=== PATIENT | female | born 1945 | race Caucasian/White ===

== ENCOUNTER 2017-10-12 10:07 | Emergency (ER) | payer MEDICARE, MEDICAID ==
[~2017-10-12] VITALS: Ht 160 cm; Wt 77.1 kg
[2017-10-12] MEDS ORDERED: BACITRACIN TOP OINT 1 UD PKG TOP ONE (12:15)
[2017-10-12] MEDS ORDERED: LIDOCAINE 1% HCL (LOCAL ANESTH.) INJ 20ML MDV ID ONE (12:15)
[2017-10-12 12:35] VITALS: BP 146/62
== END 2017-10-12 14:26 | disposition home or self-care (01) ==
LOC: ER 10:07
DX: S01.81XA Laceration without foreign body of other part of head, initial encounter (principal); W22.01XA Walked into wall, initial encounter; Y93.89 Activity, other specified; Y92.89 Other specified places as the place of occurrence of the external cause; Y99.8 Other external cause status
CPT/HCPCS: 12053; 70450; 99284; J2001

== ENCOUNTER 2017-10-14 08:46 | Emergency (ER) | payer MEDICARE, MEDICAID ==
[~2017-10-14] VITALS: Ht 160 cm; Wt 72.6 kg
[2017-10-14 09:17] VITALS: BP 123/54
== END 2017-10-14 10:06 | disposition home or self-care (01) ==
LOC: ER 08:46
DX: S01.81XD Laceration without foreign body of other part of head, subsequent encounter (principal); X58.XXXD Exposure to other specified factors, subsequent encounter

== ENCOUNTER 2017-10-22 08:22 | Emergency (ER) | payer MEDICARE, MEDICAID ==
[~2017-10-22] VITALS: Ht 154.9 cm; Wt 63.5 kg
[2017-10-22 09:00] VITALS: BP 148/57
== END 2017-10-22 09:13 | disposition home or self-care (01) ==
LOC: ER 08:22
DX: S01.81XD Laceration without foreign body of other part of head, subsequent encounter (principal); X58.XXXD Exposure to other specified factors, subsequent encounter

== ENCOUNTER 2020-10-15 20:00 | Inpatient (IN) | payer MEDICAID, MEDICARE ==
[~2020-10-15] VITALS: Ht 152.4 cm; Wt 51.4 kg
[2020-10-15] MEDS ORDERED: SODIUM CHLORIDE 0.9% 500 ML IV ONE (21:30)
[2020-10-15 22:11] LABS: Hemoglobin 8.4 g/dL (12.2-16.2); Mean Corpuscular Hgb Conc. 33.1 g/dL (32.0-36.0); Mean Corpuscular Volume 99.7 fL (80.0-100.0)
[2020-10-15 22:13] LABS: Hematocrit 25.4 % (36.0-46.0); Platelet Count (auto) 140 10^3/uL (140-450); Red Blood Cells 2.54 10^6/uL (4.0-5.20); Red Cell Distribution Width 18.5 % (11.8-14.3); White Blood Cell 6.8 10^3/uL (4.4-10.8)
[2020-10-15 22:16] LABS: Basophils % (manual) 0 (0.0-2.0); Blast Cells 0; Eosinophils % (manual) 0 (0-7); Metamyelocytes % 0; Myelocytes % 0; Promyelocytes % 0; Reactive Lymphocytes 0
[2020-10-15 22:32] LABS: Calcium 9.4 mg/dL (8.5-10.1); Chloride 115 mmol/L (98-107); INR 1.04 (0.9-1.15); Partial Thromboplastin Time 34.3 sec (23.0-31.2); Potassium 3.7 mmol/L (3.5-5.1); Sodium 143 mmol/L (136-145)
[2020-10-15 22:34] LABS: Band Neutrophils % (manual) 19; Lymphocytes % (manual) 14 (10.0-50.0); Monocytes % (manual) 7 (0-12)
[2020-10-15 22:40] LABS: Alanine Aminotransferase 27 U/L (13-56); Albumin 2.2 g/dL (3.4-5.0); Alkaline Phosphatase 133 U/L (45-117); Anion Gap 4 (5-15); Aspartate Aminotransferase 41 U/L (15-37); BUN/Creatinine Ratio 32.5; Bilirubin, Total 0.4 mg/dL (0.2-1.0); Blood Urea Nitrogen 26 mg/dL (7-18); Carbon Dioxide 24 mmol/L (21-32); GFR African American 90 mL/min; GFR Non-African American 74 mL/min; Glucose 99 mg/dL (74-106); Total Protein 6.3 g/dL (6.4-8.2)
[2020-10-16] MEDS ORDERED: PIPERACILLIN-TAZOB 3.375GM 100 ML IV ONE (00:30)
[2020-10-16] MEDS ORDERED: MORPHINE SULF INJ 2 MG/ML SYRINGE 1ML IV PRN (00:45)
[2020-10-16] MEDS ORDERED: ONDANSETRON HCL 4 MG/2 ML VIAL IV PRN (00:45)
[2020-10-16] MEDS ORDERED: ACETAMINOPHEN 325 MG TAB PO PRN (00:45)
[2020-10-16] MEDS ORDERED: NITROGLYCERIN 0.4 MG SL TAB SL PRN (00:45)
[2020-10-16] MEDS ORDERED: DOCUSATE SOD 100 MG CAP PO PRN (00:45)
[2020-10-16 01:19] LABS: Urine Bacteria MOD /hpf (None Seen); Urine Blood Negative /uL (Negative); Urine Budding Yeast MODERATE /hpf (None Seen); Urine Hyaline Cast FEW /lpf (0 - 2); Urine Mucus FEW (None Seen); Urine WBC 87 /hpf (0 - 5); Urine WBC Clumps PRESENT /hpf (None Seen)
[2020-10-16] MEDS: cefTRIAXone 1GM/50ML D5W 50 ML IV SCH ×2 (09:00→10:54)
[2020-10-16] MEDS: FAMOTIDINE 20 MG TAB PO SCH ×2 (10:31→22:00)
[2020-10-16] MEDS ORDERED: SODIUM CHLORIDE 0.9% 500 ML IV ONE (10:45)
[2020-10-16] MEDS: NOREPINEPHRINE 8 MG/250ML KIT 250 ML IV SCH (11:46)
[2020-10-16] MEDS ORDERED: VANCOMYCIN PER PHARMACY 0 MG IV SCH (14:00)
[2020-10-16] MEDS ORDERED: FUROSEMIDE 40 MG/4 ML VIAL IV ONE (14:00)
[2020-10-16] MEDS ORDERED: SODIUM CHLORIDE 0.9% 3,000 ML IV ONE (14:00)
[2020-10-16] MEDS ORDERED: VANCOMYCIN 750mg/250ml 250 ML IV ONE (14:30)
[2020-10-16] MEDS ORDERED: PPN PER PHARMACY 0 ML IV SCH (15:00)
[2020-10-16 19:41] LABS: Calcium 8.9 mg/dL (8.5-10.1); Potassium 3.8 mmol/L (3.5-5.1)
[2020-10-16 19:47] LABS: BUN/Creatinine Ratio 30.9; Bilirubin, Total 0.3 mg/dL (0.2-1.0); Phosphorus 3.6 mg/dL (2.5-4.90); Pre Albumin 5.8 mg/dL (20.0-40.0); Total Protein 5.8 g/dL (6.4-8.2)
[2020-10-16] MEDS ORDERED: AMINO ACID INFUSION IN D5W 2,000 ML IV NR (20:00)
[2020-10-16] MEDS: LORazepam 2MG/ML-1ML VIAL IV PRN (20:15)
[2020-10-17] MEDS ORDERED: DEXTROSE (50%) 50ML SYRG IV SCH
[2020-10-17 06:00] LABS: Basophils # (auto) 0 10 ^3/uL (0-0.2); Basophils % (auto) 0.1 % (0.0-2.0); Eosinophils # (auto) 0 10 ^3/uL (0-0.8); Eosinophils % (auto) 0.1 % (0.0-7.0); Lymphocytes # (auto) 0.6 10 ^3/uL (0.4-5.4); Monocytes # (auto) 0.6 10 ^3/uL (0-1.3); Neutrophils # (auto) 7.9 10 ^3/uL (1.6-8.6); Neutrophils % (auto) 86.4 % (37.0-80.0); Red Cell Distribution Width 17.9 % (11.8-14.3)
[2020-10-17] MEDS: InsuLIN REG 1unit/0.01ml Soln (100units/ml) SC SCH ×4 (06:00→18:00)
[2020-10-17] MEDS: ACCU-CHEK COMFORT CURVE STRIP VI SCH ×4 (06:00→18:03)
[2020-10-17 06:03] LABS: Hematocrit 22.9 % (36.0-46.0); Hemoglobin 7.5 g/dL (12.2-16.2); Lymphocytes % (auto) 6.7 % (10.0-50.0); Mean Corpuscular Hemoglobin 32.7 pg (28.0-32.0); Mean Corpuscular Hgb Conc. 32.9 g/dL (32.0-36.0); Mean Corpuscular Volume 99.2 fL (80.0-100.0); Monocytes % (auto) 6.7 % (0.0-12.0); Nucleated Red Blood Cells % 0.6 %; Platelet Count (auto) 165 10^3/uL (140-450); Red Blood Cells 2.31 10^6/uL (4.0-5.20); White Blood Cell 9.1 10^3/uL (4.4-10.8)
[2020-10-17 06:26] LABS: Albumin 2.2 g/dL (3.4-5.0); Calcium 8.2 mg/dL (8.5-10.1); Magnesium 1.6 mg/dL (1.6-2.6); Potassium 3.7 mmol/L (3.5-5.1)
[2020-10-17 06:29] LABS: Cholesterol 109 mg/dL (< 200); HDL Cholesterol 53 mg/dL (40-59); LDL Cholesterol 47 mg/dL (< 100); Triglycerides 63 mg/dL (< 150)
[2020-10-17 06:33] LABS: BUN/Creatinine Ratio 20.9; Bilirubin, Total 0.4 mg/dL (0.2-1.0); Phosphorus 2.8 mg/dL (2.5-4.90); Total Protein 6.4 g/dL (6.4-8.2)
[2020-10-17] MEDS: FUROSEMIDE 40 MG/4 ML VIAL IV SCH (11:14)
[2020-10-17] MEDS: LORazepam 2MG/ML-1ML VIAL IV PRN (11:14)
[2020-10-17] MEDS: NOREPINEPHRINE 8 MG/250ML KIT 250 ML IV SCH (11:45)
[2020-10-17] MEDS: VANCOMYCIN 750mg/250ml 250 ML IV SCH ×2 (13:20→14:30)
[2020-10-17] MEDS: MAGNESIUM SULFATE 1GM/100ML 100 ML IV SCH ×2 (13:37→14:40)
[2020-10-17 17:00] LABS: % Iron Saturation 10.3 % (15-50)
[2020-10-17 17:18] LABS: Folate (Folic Acid) 5.31 ng/mL (5.38-24)
[2020-10-17] MEDS ORDERED: PPN PER PHARMACY IV NR ×9 (20:00)
[2020-10-17 22:00] VITALS: BP 140/71
[2020-10-18] MEDS: ACCU-CHEK COMFORT CURVE STRIP VI SCH ×4 (00:25→17:19)
[2020-10-18] MEDS ORDERED: QUET100T46 PO (01:22)
[2020-10-18] MEDS ORDERED: LORA1TAB23 PO (01:22)
[2020-10-18 05:00] VITALS: BP 150/90
[2020-10-18] MEDS: LEVOTHYROXINE SODIUM 25 MCG TAB PO SCH (06:40)
[2020-10-18] MEDS: InsuLIN REG 1unit/0.01ml Soln (100units/ml) SC SCH ×4 (06:42→17:18)
[2020-10-18 09:00] VITALS: BP 139/66
[2020-10-18] MEDS: FUROSEMIDE 40 MG/4 ML VIAL IV SCH (09:45)
[2020-10-18] MEDS: cefTRIAXone 1GM/50ML D5W 50 ML IV SCH (09:51)
[2020-10-18] MEDS: FOLIC ACID 1 MG in D5W 5% 50 ML INJ SCH (10:00)
[2020-10-18] MEDS ORDERED: FOLIC ACID 1 MG in D5W 5% 50 ML INJ SCH (10:00)
[2020-10-18] MEDS ORDERED: FAMOTIDINE (10MG/ML) 2ML VL IV SCH (10:00)
[2020-10-18 10:03] LABS: Albumin 2.1 g/dL (3.4-5.0); Calcium 8.7 mg/dL (8.5-10.1); Magnesium 2.4 mg/dL (1.6-2.6); Potassium 3.2 mmol/L (3.5-5.1)
[2020-10-18 10:06] LABS: BUN/Creatinine Ratio 30.3; Bilirubin, Total 0.4 mg/dL (0.2-1.0); Phosphorus 2.8 mg/dL (2.5-4.90); Total Protein 6.5 g/dL (6.4-8.2)
[2020-10-18 10:17] LABS: Basophils # (auto) 0 10 ^3/uL (0-0.2); Basophils % (auto) 0.2 % (0.0-2.0); Eosinophils # (auto) 0 10 ^3/uL (0-0.8); Eosinophils % (auto) 0.6 % (0.0-7.0); Hematocrit 23.9 % (36.0-46.0); Hemoglobin 7.7 g/dL (12.2-16.2); Lymphocytes # (auto) 0.9 10 ^3/uL (0.4-5.4); Lymphocytes % (auto) 12.3 % (10.0-50.0); Mean Corpuscular Hemoglobin 32.4 pg (28.0-32.0); Mean Corpuscular Hgb Conc. 32.4 g/dL (32.0-36.0); Mean Corpuscular Volume 100.1 fL (80.0-100.0); Monocytes # (auto) 0.7 10 ^3/uL (0-1.3); Monocytes % (auto) 10.1 % (0.0-12.0); Neutrophils # (auto) 5.4 10 ^3/uL (1.6-8.6); Neutrophils % (auto) 76.8 % (37.0-80.0); Nucleated Red Blood Cells % 0.7 %; Platelet Count (auto) 142 10^3/uL (140-450); Red Blood Cells 2.38 10^6/uL (4.0-5.20); Red Cell Distribution Width 17.8 % (11.8-14.3); White Blood Cell 7.1 10^3/uL (4.4-10.8)
[2020-10-18] MEDS: IRON SUCROSE COMPLEX 200 MG in SODIUM CHL 0.9% 100 ML IV SCH (11:46)
[2020-10-18] MEDS ORDERED: SODIUM FERR GLUC 62.5MG/5ML 125 MG in SODIUM CHL 0.9% 100 ML IV SCH (12:00)
[2020-10-18] MEDS: POTASSIUM CHL 20MEQ/100ML 100 ML IV SCH ×4 (12:45→23:24)
[2020-10-18 13:00] VITALS: BP 144/69
[2020-10-18 17:00] VITALS: BP 121/61
[2020-10-18] MEDS ORDERED: PPN PER PHARMACY IV NR ×8 (20:00)
[2020-10-18 22:00] VITALS: BP 126/98
[2020-10-19] MEDS: ACCU-CHEK COMFORT CURVE STRIP VI SCH ×5 (00:09→23:47)
[2020-10-19 05:00] VITALS: BP 146/87
[2020-10-19] MEDS: InsuLIN REG 1unit/0.01ml Soln (100units/ml) SC SCH ×5 (06:00→23:47)
[2020-10-19] MEDS: LEVOTHYROXINE SODIUM 25 MCG TAB PO SCH (06:23)
[2020-10-19 08:05] LABS: Basophils # (auto) 0 10 ^3/uL (0-0.2); Basophils % (auto) 0.3 % (0.0-2.0); Eosinophils # (auto) 0.1 10 ^3/uL (0-0.8); Hematocrit 26.5 % (36.0-46.0); Hemoglobin 8.6 g/dL (12.2-16.2); Lymphocytes # (auto) 1.3 10 ^3/uL (0.4-5.4); Lymphocytes % (auto) 14.3 % (10.0-50.0); Mean Corpuscular Hemoglobin 32.4 pg (28.0-32.0); Mean Corpuscular Hgb Conc. 32.4 g/dL (32.0-36.0); Mean Corpuscular Volume 99.7 fL (80.0-100.0); Monocytes # (auto) 1.2 10 ^3/uL (0-1.3); Monocytes % (auto) 13.3 % (0.0-12.0); Neutrophils # (auto) 6.4 10 ^3/uL (1.6-8.6); Neutrophils % (auto) 71.1 % (37.0-80.0); Nucleated Red Blood Cells % 0.8 %; Red Blood Cells 2.66 10^6/uL (4.0-5.20); Red Cell Distribution Width 17.5 % (11.8-14.3)
[2020-10-19 08:15] LABS: BUN/Creatinine Ratio 32.6; Bilirubin, Total 0.3 mg/dL (0.2-1.0); Calcium 8.9 mg/dL (8.5-10.1); Magnesium 2.2 mg/dL (1.6-2.6); Phosphorus 2.6 mg/dL (2.5-4.90); Total Protein 6.6 g/dL (6.4-8.2)
[2020-10-19 08:17] LABS: Potassium 3.9 mmol/L (3.5-5.1)
[2020-10-19 09:25] LABS: Platelet Count (auto) 129 10^3/uL (140-450)
[2020-10-19] MEDS: cefTRIAXone 1GM/50ML D5W 50 ML IV SCH (09:39)
[2020-10-19] MEDS: FUROSEMIDE 40 MG/4 ML VIAL IV SCH (09:39)
[2020-10-19] MEDS: FAMOTIDINE (10MG/ML) 2ML VL IV SCH (09:40)
[2020-10-19] MEDS: FOLIC ACID 1 MG in D5W 5% 50 ML INJ SCH (10:26)
[2020-10-19] MEDS: IRON SUCROSE COMPLEX 200 MG in SODIUM CHL 0.9% 100 ML IV SCH (11:21)
[2020-10-19] MEDS: VANCOMYCIN 750mg/250ml 250 ML IV SCH (13:32)
[2020-10-19] MEDS ORDERED: PPN PER PHARMACY IV NR ×8 (20:00)
[2020-10-19 22:00] VITALS: BP 137/68
[2020-10-20 05:00] VITALS: BP 142/59
[2020-10-20] MEDS: InsuLIN REG 1unit/0.01ml Soln (100units/ml) SC SCH ×3 (06:00→17:37)
[2020-10-20] MEDS: ACCU-CHEK COMFORT CURVE STRIP VI SCH ×3 (06:01→17:36)
[2020-10-20] MEDS: LEVOTHYROXINE SODIUM 25 MCG TAB PO SCH (06:39)
[2020-10-20 07:48] LABS: Potassium 3.5 mmol/L (3.5-5.1)
[2020-10-20 07:54] LABS: Albumin 2.2 g/dL (3.4-5.0); BUN/Creatinine Ratio 36.7; Bilirubin, Total 0.3 mg/dL (0.2-1.0); Magnesium 2.1 mg/dL (1.6-2.6); Phosphorus 2.7 mg/dL (2.5-4.90)
[2020-10-20 09:00] VITALS: BP 117/57
[2020-10-20] MEDS: FUROSEMIDE 40 MG/4 ML VIAL IV SCH (09:40)
[2020-10-20] MEDS: cefTRIAXone 1GM/50ML D5W 50 ML IV SCH (09:41)
[2020-10-20] MEDS: FAMOTIDINE (10MG/ML) 2ML VL IV SCH (09:41)
[2020-10-20] MEDS: VANCOMYCIN 750mg/250ml 250 ML IV SCH (11:12)
[2020-10-20] MEDS ORDERED: IODIXANOL 320MG/ML 100ML BTL IV ONE (11:54)
[2020-10-20] MEDS ORDERED: IOHEXOL 300 MG/ML 100ML BOTTLE IJ ONE (11:55)
[2020-10-20 13:00] VITALS: BP 119/55
[2020-10-20] MEDS: FOLIC ACID 1 MG in D5W 5% 50 ML INJ SCH (13:43)
[2020-10-20] MEDS: IRON SUCROSE COMPLEX 200 MG in SODIUM CHL 0.9% 100 ML IV SCH (14:11)
[2020-10-20 17:00] VITALS: BP 122/56
[2020-10-20] MEDS ORDERED: PPN PER PHARMACY IV NR ×8 (20:00)
[2020-10-20 22:00] VITALS: BP 143/61
[2020-10-21] MEDS: ACCU-CHEK COMFORT CURVE STRIP VI SCH ×5 (00:11→23:31)
[2020-10-21] MEDS: InsuLIN REG 1unit/0.01ml Soln (100units/ml) SC SCH ×5 (00:13→23:30)
[2020-10-21 05:00] VITALS: BP 136/51
[2020-10-21] MEDS: VANCOMYCIN 750mg/250ml 250 ML IV SCH (05:54)
[2020-10-21] MEDS: LEVOTHYROXINE SODIUM 25 MCG TAB PO SCH (06:34)
[2020-10-21 07:16] LABS: Calcium 8.7 mg/dL (8.5-10.1); Potassium 3.8 mmol/L (3.5-5.1)
[2020-10-21 07:21] LABS: BUN/Creatinine Ratio 39.8; Bilirubin, Total 0.2 mg/dL (0.2-1.0); Phosphorus 2.6 mg/dL (2.5-4.90); Total Protein 6.4 g/dL (6.4-8.2)
[2020-10-21 09:00] VITALS: BP 101/40
[2020-10-21] MEDS: FUROSEMIDE 40 MG/4 ML VIAL IV SCH (09:25)
[2020-10-21] MEDS: FAMOTIDINE (10MG/ML) 2ML VL IV SCH (09:37)
[2020-10-21] MEDS: CIPROFLOXACIN 400MG/200ML 200 ML IV SCH ×2 (09:40→21:40)
[2020-10-21] MEDS: FOLIC ACID 1 MG in D5W 5% 50 ML INJ SCH (09:42)
[2020-10-21] MEDS: IRON SUCROSE COMPLEX 200 MG in SODIUM CHL 0.9% 100 ML IV SCH (12:00)
[2020-10-21 13:00] VITALS: BP 105/45
[2020-10-21 17:00] VITALS: BP 111/43
[2020-10-21 22:00] VITALS: BP 108/70
[2020-10-22] MEDS: VANCOMYCIN 750mg/250ml 250 ML IV SCH (02:32)
[2020-10-22 05:00] VITALS: BP 121/65
[2020-10-22] MEDS: ACCU-CHEK COMFORT CURVE STRIP VI SCH ×2 (06:00→11:34)
[2020-10-22] MEDS: InsuLIN REG 1unit/0.01ml Soln (100units/ml) SC SCH ×2 (06:00→11:34)
[2020-10-22] MEDS: LEVOTHYROXINE SODIUM 25 MCG TAB PO SCH (06:36)
[2020-10-22 09:19] VITALS: BP 106/46
[2020-10-22] MEDS: FAMOTIDINE (10MG/ML) 2ML VL IV SCH (09:20)
[2020-10-22] MEDS: CIPROFLOXACIN 400MG/200ML 200 ML IV SCH (09:21)
[2020-10-22] MEDS: FOLIC ACID 1 MG in D5W 5% 50 ML INJ SCH (11:33)
[2020-10-22] MEDS: IRON SUCROSE COMPLEX 200 MG in SODIUM CHL 0.9% 100 ML IV SCH (11:56)
[2020-10-22 12:33] VITALS: BP 115/48
[2020-10-22 17:00] VITALS: BP 130/43
== END 2020-10-22 20:45 | DRG 871 ==
LOC: EDBD 20:00 → ER 20:04 → TELE 10-16 00:44 → TELE-CENTR 10-17 20:28
PROVIDERS: ADMIT Nurse Practitioner; ATTEND Internal Medicine
PROC: 05HD33Z Insertion of Infusion Device into Right Cephalic Vein, Percutaneous Approach (ICD-10-PCS; principal; 2020-10-17)
PROC: B54MZZA Ultrasonography of Right Upper Extremity Veins, Guidance (ICD-10-PCS; 2020-10-17)
DX: A41.81 Sepsis due to Enterococcus (principal); J15.6 Pneumonia due to other Gram-negative bacteria; G92 Toxic encephalopathy; I50.43 Acute on chronic combined systolic (congestive) and diastolic (congestive) heart failure; E44.0 Moderate protein-calorie malnutrition; G91.9 Hydrocephalus, unspecified; C78.00 Secondary malignant neoplasm of unspecified lung; I13.0 Hypertensive heart and chronic kidney disease with heart failure and stage 1 through stage 4 chronic kidney disease, or unspecified chronic kidney disease; N30.00 Acute cystitis without hematuria; J98.11 Atelectasis; F31.9 Bipolar disorder, unspecified; Z66 Do not resuscitate; F09 Unspecified mental disorder due to known physiological condition; F17.200 Nicotine dependence, unspecified, uncomplicated; F41.9 Anxiety disorder, unspecified; I08.0 Rheumatic disorders of both mitral and aortic valves; I48.91 Unspecified atrial fibrillation; N18.2 Chronic kidney disease, stage 2 (mild); E53.8 Deficiency of other specified B group vitamins; I49.5 Sick sinus syndrome; Z51.5 Encounter for palliative care; R65.20 Severe sepsis without septic shock; D63.8 Anemia in other chronic diseases classified elsewhere; R22.31 Localized swelling, mass and lump, right upper limb; H54.7 Unspecified visual loss; S41.101A Unspecified open wound of right upper arm, initial encounter; Z20.822 Contact with and (suspected) exposure to COVID-19; X58.XXXA Exposure to other specified factors, initial encounter; C50.911 Malignant neoplasm of unspecified site of right female breast; Z68.22 Body mass index [BMI] 22.0-22.9, adult; Z86.73 Personal history of transient ischemic attack (TIA), and cerebral infarction without residual deficits; Z87.828 Personal history of other (healed) physical injury and trauma; Z95.0 Presence of cardiac pacemaker; Z98.2 Presence of cerebrospinal fluid drainage device; Y93.89 Activity, other specified; Y92.89 Other specified places as the place of occurrence of the external cause; Y99.8 Other external cause status
CPT/HCPCS: 36415; 70450; 71045; 71260; 80053; 80061; 80202; 81001; 82040; 82565; 82607; 82746; 82962; 83036; 83540; 83550; 83605; 83615; 83735; 83880; 84100; 84443; 84478; 84484; 85007; 85025; 85027; 85045; 85610; 85730; 87040; 87070; 87077; 87081; 87086; 87088; 87186; 87205; 87426; 92610; 93005; 93306; 95819; 96360; 96361; 97163; G0378; J0696; J1756; J1815; J2543; J3480; J3490; J7060; J7131; Q9967

== ENCOUNTER 2020-10-31 16:15 | Emergency (ER) | payer MEDICARE ==
[~2020-10-31] VITALS: Ht 172.7 cm; Wt 72.6 kg
[~2020-10-31 16:15] MED LIST: LORA1TAB23 PO; QUET100T46 PO
[2020-10-31] MEDS ORDERED: SODIUM CHLORIDE 0.9% 1,000 ML IV ONE ×2 (16:30→17:00)
[2020-10-31 16:53] LABS: Basophils # (auto) 0.1 10 ^3/uL (0-0.2); Eosinophils # (auto) 0.2 10 ^3/uL (0-0.8); Eosinophils % (auto) 2.6 % (0.0-7.0); Monocytes # (auto) 0.6 10 ^3/uL (0-1.3); White Blood Cell 6.2 10^3/uL (4.4-10.8)
[2020-10-31 16:54] LABS: Basophils % (auto) 1.3 % (0.0-2.0); Hematocrit 21.7 % (36.0-46.0); Lymphocytes # (auto) 1.4 10 ^3/uL (0.4-5.4); Lymphocytes % (auto) 23.2 % (10.0-50.0); Mean Corpuscular Hemoglobin 34.7 pg (28.0-32.0); Mean Corpuscular Hgb Conc. 31.7 g/dL (32.0-36.0); Mean Corpuscular Volume 109.3 fL (80.0-100.0); Neutrophils % (auto) 63.9 % (37.0-80.0); Nucleated Red Blood Cells % 0.1 %; Platelet Count (auto) 342 10^3/uL (140-450); Red Blood Cells 1.98 10^6/uL (4.0-5.20)
[2020-10-31 17:14] LABS: Albumin 2.1 g/dL (3.4-5.0); Calcium 8.7 mg/dL (8.5-10.1); Magnesium 2.2 mg/dL (1.6-2.6); Potassium 3.7 mmol/L (3.5-5.1)
[2020-10-31 17:18] LABS: Red Cell Distribution Width 20.9 % (11.8-14.3)
[2020-10-31 17:21] LABS: BUN/Creatinine Ratio 18.6; Bilirubin, Total 0.2 mg/dL (0.2-1.0); Hemoglobin 6.9 g/dL (12.2-16.2); Total Protein 6.3 g/dL (6.4-8.2)
[2020-10-31 17:39] LABS: INR 0.97 (0.9-1.15); Partial Thromboplastin Time 21.9 sec (23.0-31.2)
[2020-10-31 18:59] LABS: Urine Bacteria FEW /hpf (None Seen); Urine Blood Negative /uL (Negative); Urine Mucus FEW (None Seen); Urine Specific Gravity 1.018 (1.001-1.035); Urine WBC 3 /hpf (0 - 5)
[2020-11-01] VITALS (8 sets, daily range): BP systolic 116–142; BP diastolic 51–70
[2020-11-01] MEDS: SODIUM CHLORIDE 0.9% 500 ML IV ONE ×2 (02:49→03:18)
[2020-11-01 05:18] LABS: Basophils # (auto) 0.1 10 ^3/uL (0-0.2); Basophils % (auto) 1.5 % (0.0-2.0); Eosinophils # (auto) 0.2 10 ^3/uL (0-0.8); Eosinophils % (auto) 3.4 % (0.0-7.0); Hemoglobin 10.4 g/dL (12.2-16.2); Lymphocytes # (auto) 1.3 10 ^3/uL (0.4-5.4); Lymphocytes % (auto) 18.8 % (10.0-50.0); Mean Corpuscular Hemoglobin 33.2 pg (28.0-32.0); Mean Corpuscular Hgb Conc. 33.6 g/dL (32.0-36.0); Mean Corpuscular Volume 98.7 fL (80.0-100.0); Monocytes # (auto) 0.7 10 ^3/uL (0-1.3); Monocytes % (auto) 9.8 % (0.0-12.0); Neutrophils # (auto) 4.6 10 ^3/uL (1.6-8.6); Neutrophils % (auto) 66.5 % (37.0-80.0); Nucleated Red Blood Cells % 0.2 %; Platelet Count (auto) 327 10^3/uL (140-450); Red Blood Cells 3.14 10^6/uL (4.0-5.20); Red Cell Distribution Width 19.6 % (11.8-14.3); White Blood Cell 6.9 10^3/uL (4.4-10.8)
== END 2020-11-01 11:39 ==
LOC: ER 16:15 → EDBD 16:15 → ER 11-01 11:39
DX: D64.9 Anemia, unspecified (principal); G93.41 Metabolic encephalopathy; C50.911 Malignant neoplasm of unspecified site of right female breast; C79.51 Secondary malignant neoplasm of bone; C79.31 Secondary malignant neoplasm of brain; C79.89 Secondary malignant neoplasm of other specified sites; E43 Unspecified severe protein-calorie malnutrition; H54.40 Blindness, one eye, unspecified eye; I48.91 Unspecified atrial fibrillation; I11.0 Hypertensive heart disease with heart failure; I50.9 Heart failure, unspecified; F31.9 Bipolar disorder, unspecified; Z20.822 Contact with and (suspected) exposure to COVID-19; Z68.45 Body mass index [BMI] 70 or greater, adult; Z66 Do not resuscitate; Z86.73 Personal history of transient ischemic attack (TIA), and cerebral infarction without residual deficits; Z95.0 Presence of cardiac pacemaker; Z79.899 Other long term (current) drug therapy
CPT/HCPCS: 36415; 36430; 70450; 71045; 80053; 81001; 83735; 84443; 84484; 85025; 85610; 85730; 86850; 86900; 86901; 86920; 87426; 99285; J7030; P9016